=== PATIENT | male | born 1960 | race Caucasian/White ===

== ENCOUNTER 2018-02-13 06:29 | Day surgery (SDC) | payer BC ==
[2018-02-12 13:39] VITALS: BMI 21.7
[2018-02-13] MEDS ORDERED: Propofol 10 mg/ml Inj (20 ML) ONE ×2 (08:29→09:07)
[2018-02-13] MEDS ORDERED: Midazolam 2 MG/2 ML VIAL ONE (08:29)
[2018-02-13] MEDS ORDERED: Lactated Ringer's 1,000 ML IV ONE (08:51)
[2018-02-13 09:53] VITALS: TEMP 98.7; O2SAT 100
[2018-02-13 13:58] VITALS: BP 115/79; PULSE 69; RESP 18
== END 2018-02-13 11:00 | disposition home or self-care (01) ==
LOC: C.ENDO 06:29
PROVIDERS: ATTEND Internal Medicine Gastroenterology
DX: Z12.11 Encounter for screening for malignant neoplasm of colon (principal); J32.9 Chronic sinusitis, unspecified; K59.00 Constipation, unspecified; N52.9 Male erectile dysfunction, unspecified; K57.30 Diverticulosis of large intestine without perforation or abscess without bleeding; K64.1 Second degree hemorrhoids
CPT/HCPCS: 45378; J2001; J2250; J2704; J7120